=== PATIENT | female | born 1960 | race Caucasian/White ===

== ENCOUNTER 2024-03-23 04:58 | Day surgery (SDC) | payer OTHER ==
[2024-03-17 17:14] VITALS: BMI 24.0
[2024-03-23] MEDS ORDERED: LIDOCAINE HCL/PF 2% SDV 5ML VIAL ONE (10:42)
[2024-03-23] MEDS ORDERED: MIDAZOLAM HCL 2 MG/2 ML SINGLE DOSE VIAL ONE (10:43)
[2024-03-23] MEDS ORDERED: PROPOFOL 20 ML ONE (10:44)
[2024-03-23] MEDS ORDERED: KETOROLAC TROMETHAMINE 30 MG/1 ML VIAL ONE (11:03)
[2024-03-23] MEDS ORDERED: ONDANSETRON 4 MG/2 ML VIAL ONE (11:03)
[2024-03-23] MEDS: ceFAZolin SODIUM 1 GM VIAL IVPB ONE (11:03)
[2024-03-23] MEDS ORDERED: DEXAMETHASONE SOD PHOSPHATE 4 MG/1 ML VIAL ONE (11:03)
[2024-03-23] MEDS ORDERED: ONDANSETRON 4 MG/2 ML VIAL IVPUSH PRN (11:48)
[2024-03-23] MEDS: ACETAMINOPHEN 1000 MG/100 ML BAG IVPB ONE (12:00)
[2024-03-23] MEDS: LACTATED RINGERS SOLUTION 1,000 ML IV SCH (12:22)
[2024-03-23 13:48] VITALS: PULSE 62
[2024-03-23 15:09] VITALS: BP 127/87; RESP 20; TEMP 97.7
== END 2024-03-23 15:15 | disposition home or self-care (01) ==
LOC: JASU-SURG 04:58
PROVIDERS: ATTEND Obstetrics & Gynecology
PROC: 0UB98ZZ Excision of Uterus, Via Natural or Artificial Opening Endoscopic (ICD-10-PCS; principal; 2024-03-23 10:00)
DX: N95.0 Postmenopausal bleeding (principal); N84.0 Polyp of corpus uteri
CPT/HCPCS: 86850; 86900; 86901; 88305-TC; 94760; J0131